=== PATIENT | male | born 1970 ===

== ENCOUNTER 2016-10-24 17:36 | Emergency (ER) | payer BC, MEDICAID ==
[2016-10-24] MEDS ORDERED: HYDROmorphone 1 MG/ML Syringe IVPUSH ONE (17:42)
[2016-10-24] MEDS ORDERED: Diphtheria,Pertussis(Acell),Tetanus Vaccine 0.5 ML SDV inactive IM ONE (17:42)
[2016-10-24] MEDS ORDERED: LORazepam 2 MG/ML MDV IVPUSH ONE (17:42)
[2016-10-24] MEDS ORDERED: Metoclopramide 10 MG/2 ML SDV IVPUSH ONE (17:44)
[2016-10-24] MEDS ORDERED: Sodium Chloride 0.9% 1,000 ML IV SCH (17:45)
[2016-10-24 17:46] VITALS: BP 128/87
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
[2016-10-24] MEDS ORDERED: ceFAZolin 2 GM in Premix Bag 1 BAG IV ONE (18:03)
== END 2016-10-24 18:30 ==
LOC: JD.ED 17:36
DX: S01.551A Open bite of lip, initial encounter (principal); W54.0XXA Bitten by dog, initial encounter; Z23 Encounter for immunization; F17.200 Nicotine dependence, unspecified, uncomplicated
CPT/HCPCS: 36415; 80053; 85025; 85610; 85730; 90471; 96365; 96375; 99285; J0690; J1170; J2060; J2765; J7040; 90715; 99284

== ENCOUNTER 2016-12-21 17:04 | Emergency (ER) | payer BC ==
[2016-12-21] MEDS ORDERED: Lidocaine 1% 10 ML MDV INJECT ONE (17:29)
[2016-12-21 17:31] VITALS: BP 112/78
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
[2016-12-21] MEDS ORDERED: Acetaminophen 325 MG Tab PO ONE (19:17)
--- NOTE | 2016-12-23 08:17 | CT ---
Head CT Technique: Multiple axial sections through the brain were obtained. Intravenous contrast was not utilized. Comparison: Previous MRI brain dated 10/27/15. Findings: Ventricles along with basal cisterns and sulci over the convexities are within normal limits for the patient's age. No abnormal parenchymal densities are seen. No evidence of intracranial hemorrhage. No midline shift or mass effect is seen. Bone window settings were reviewed showing mild mucosal thickening within the ethmoid sinuses which is felt to be incidental. No acute calvarial abnormality is identified. Impression: 1. Minimal sinus findings which are felt to be incidental. 2. Noncontrast head CT study is otherwise unremarkable. Diagnostic code #2 Agree with preliminary report issued by [facility] ([facility] preliminary report dictated on 12/21/16, 8:15 PM Central Time)
== END 2016-12-21 19:36 | disposition home or self-care (01) ==
LOC: JD.ED 17:04
DX: S06.0X9A Concussion with loss of consciousness of unspecified duration, initial encounter (principal); S01.81XA Laceration without foreign body of other part of head, initial encounter; F17.210 Nicotine dependence, cigarettes, uncomplicated; Z98.890 Other specified postprocedural states; W18.09XA Striking against other object with subsequent fall, initial encounter
CPT/HCPCS: 12011; 70450; 99283; A9270; 12051; 99284-25